=== PATIENT | female | born 1960 | race Caucasian/White ===

== ENCOUNTER 2020-09-29 13:49 | Outpatient (REF) | payer BC, SELFPAY | END 2020-09-29 13:50 | disposition home or self-care (01) | LOC: HO.MAMMO 13:49 | PROVIDERS: Visit Provider Internal Medicine | DX: Z13.89 Encounter for screening for other disorder (principal) ==

== ENCOUNTER 2020-10-04 07:48 | Outpatient (REF) | payer BC, SELFPAY ==
--- NOTE | ~2020-10-04 | MM_ITS ---
EXAMINATION: MM SCREENING DIGITAL BREAST TOMOSYNTHESIS, BILATERAL CLINICAL INFORMATION: Screening. Asymptomatic. The lifetime risk of breast cancer based on the Tyrer-Cuzick Model is 13%. COMPARISON: Mammography: 07/30/2019, 08/02/2018, 04/19/2017 TECHNIQUE: Digital breast tomosynthesis is performed in both the craniocaudal and mediolateral oblique views along with computer-aided detection (CAD). Synthesized 2D images are generated from the tomosynthesis. FINDINGS: The breasts are almost entirely fatty (ACR BI-RADS breast composition Category a). There are no significant masses, abnormal calcifications, or other abnormalities. Background stromal and fibroglandular densities are similar to prior exam. No developing density. The axilla and skin contours are unremarkable. MM/MM tomosynthesis screening BI IMPRESSION: There are no significant changes from prior study. ASSESSMENT: BI-RADS 1: Negative RECOMMENDATION: Routine annual mammography screening. This patient's information was entered into a reminder system with a target due date for their next mammogram.
== END 2020-10-04 07:49 | disposition home or self-care (01) ==
LOC: HO.MAMMO 07:48
PROVIDERS: Visit Provider Internal Medicine
DX: Z12.31 Encounter for screening mammogram for malignant neoplasm of breast (principal)
CPT/HCPCS: 77063; 77067

== ENCOUNTER 2021-10-17 08:33 | Outpatient (REF) | payer BC, SELFPAY ==
--- NOTE | ~2021-10-17 | MM_ITS ---
EXAMINATION: MM SCREENING DIGITAL BREAST TOMOSYNTHESIS, BILATERAL CLINICAL INFORMATION: Screening. Asymptomatic. The lifetime risk of breast cancer based on the Tyrer-Cuzick Model is 8%. COMPARISON: Mammography: 10/04/2020, 07/30/2019, 07/03/2018 TECHNIQUE: Digital breast tomosynthesis is performed in both the craniocaudal and mediolateral oblique views along with computer-aided detection (CAD). Synthesized 2D images are generated from the tomosynthesis. FINDINGS: The breasts are almost entirely fatty (ACR BI-RADS breast composition Category a). There are no significant masses, abnormal calcifications, or other abnormalities. Background stromal markings are stable. There is no developing density or architectural abnormality. The axilla and skin contours are unremarkable. There are no significant changes. MM/MM tomosynthesis screening BI IMPRESSION: No mammographic evidence of malignancy. ASSESSMENT: BI-RADS 1: Negative RECOMMENDATION: Routine annual mammography screening. This patient's information was entered into a reminder system with a target due date for their next mammogram.
== END 2021-10-17 08:34 | disposition home or self-care (01) ==
LOC: HO.MAMMO 08:33
PROVIDERS: PCP Internal Medicine; Visit Provider Internal Medicine
DX: Z12.31 Encounter for screening mammogram for malignant neoplasm of breast (principal)
CPT/HCPCS: 77063; 77067

== ENCOUNTER 2022-02-08 10:33 | Outpatient (REF) | payer BC, SELFPAY ==
[2022-02-08 13:42] LABS: MANUAL DIFF FLAG NO
[2022-02-08 14:03] LABS: Basophils Absolute Auto 0.1 X10*3/uL (0.0-0.2); Basophils Percent Auto 0.9 % (0-2); Eosinophils Absolute Auto 0.2 X10*3/uL (0.0-0.4); Eosinophils Percent Auto 2.9 % (0-4); Hematocrit 41.3 % (37.0-47.0); Hemoglobin 13.6 g/dl (12.0-16.0); Imm Gran Abs Auto 0.02 X10*3/uL (0.00-0.03); Imm Gran Pct Auto 0.4 % (0.0-0.4); Lymphocytes Percent Auto 37.1 % (20-40); Mean Corpuscular HGB Conc 32.9 g/dl (31.0-35.0); Mean Corpuscular Hemoglobin 31.4 pg (27.0-33.0); Mean Corpuscular Volume 95.4 fL (80.0-98.0); Mean Platelet Volume 10.4 fL (9.4-12.3); Monocytes Absolute Auto 0.5 X10*3/uL (0.1-1.2); Monocytes Percent Auto 8.4 % (2-11); Neutrophils Absolute Auto 2.8 x10*3/uL (2.0-8.3); Neutrophils Percent Auto 50.3 % (45-73); Platelet Count 289 X10*3/uL (160-400); Red Blood Count 4.33 X10*6/uL (4.20-5.50); Red Cell Distribution Width 12.4 % (11.0-16.0); White Blood Count 5.5 X10*3/uL (4.8-10.8)
[2022-02-08 14:12] LABS: Alanine Aminotransferase 18 U/L (0-31); Anion Gap 13 (12-20); Aspartate Amino Transferase 22 U/L (5-31); Blood Urea Nitrogen 11 mg/dL (9-16); Calcium 9.2 mg/dL (8.4-10.2); Carbon Dioxide 25 mmol/L (22-29); Chloride 104 mmol/L (96-108); Cholesterol 213 mg/dL; Estimated Glomerular Filt Rate > 60; Glucose Fasting 290 mg/dL (60-99); HDL Cholesterol 31 mg/dL; LDL Cholesterol Calculated 123 mg/dl; Potassium 5.1 mmol/L (3.3-5.1); Sodium 137 mmol/L (135-145); Triglycerides 296 mg/dL
[2022-02-08 14:33] LABS: TSH reflex Free T4 2.11 uIU/mL (0.32-4.0); Vitamin D 25-OH Total 20.1 ng/mL (>30)
[2022-02-09 13:20] LABS: Estimated Average Glucose 295 mg/dL; Hemoglobin A1c % 11.9 %
== END 2022-02-08 10:34 | disposition home or self-care (01) ==
LOC: HO.HMGCLDS 10:33
PROVIDERS: PCP Internal Medicine; Visit Provider Internal Medicine
DX: E78.5 Hyperlipidemia, unspecified (principal); I10 Essential (primary) hypertension; R73.01 Impaired fasting glucose; R42 Dizziness and giddiness
CPT/HCPCS: 36415; 80048; 80061; 82306; 83036; 84443; 84450; 84460; 85025

== ENCOUNTER 2022-06-08 09:24 | Outpatient (REF) | payer BC, SELFPAY ==
[2022-06-08 11:51] LABS: Estimated Average Glucose 137 mg/dL; Hemoglobin A1C 172.8141 umol/L; Hemoglobin A1c % 6.4 %
[2022-06-08 12:08] LABS: Alanine Aminotransferase 11 U/L (0-31); Anion Gap 16 (12-20); Aspartate Amino Transferase 17 U/L (5-31); Blood Urea Nitrogen 19 mg/dL (9-16); Calcium 9.7 mg/dL (8.4-10.2); Carbon Dioxide 27 mmol/L (22-29); Chloride 102 mmol/L (96-108); Cholesterol 174 mg/dL; Estimated Glomerular Filt Rate > 60; Glucose Fasting 140 mg/dL (60-99); HDL Cholesterol 35 mg/dL; LDL Cholesterol Calculated 101 mg/dl; Potassium 4.9 mmol/L (3.3-5.1); Sodium 140 mmol/L (135-145); Triglycerides 194 mg/dL
[2022-06-08 12:16] LABS: Vitamin D 25-OH Total 60.1 ng/mL (>30)
[2022-06-08 12:20] LABS: Creatinine Urine 121.88 mg/dL; Microalbum/Creatinine Ratio Ur 9.8 ug/mg cr
== END 2022-06-08 09:25 | disposition home or self-care (01) ==
LOC: HO.HMGCLDS 09:24
PROVIDERS: PCP Internal Medicine; Visit Provider Internal Medicine
DX: E55.9 Vitamin D deficiency, unspecified (principal); E78.5 Hyperlipidemia, unspecified; I10 Essential (primary) hypertension; E11.65 Type 2 diabetes mellitus with hyperglycemia
CPT/HCPCS: 36415; 80048; 80061; 82043; 82306; 83036; 84450; 84460

== ENCOUNTER 2022-11-08 10:47 | Outpatient (REF) | payer BC, SELFPAY ==
--- NOTE | ~2022-11-08 | MM_ITS ---
EXAMINATION: MM SCREENING DIGITAL BREAST TOMOSYNTHESIS, BILATERAL CLINICAL INFORMATION: Screening. Asymptomatic. The lifetime risk of breast cancer based on the Tyrer-Cuzick Model is 7.7%. COMPARISON: Mammography: October 17, 2021 and studies dating back to January 14, 2015 TECHNIQUE: Digital breast tomosynthesis is performed in both the craniocaudal and mediolateral oblique views along with computer-aided detection (CAD). Synthesized 2D images are generated from the tomosynthesis. FINDINGS: There are scattered areas of fibroglandular density (ACR BI-RADS breast composition Category b). There are no new significant masses, abnormal calcifications, or other abnormalities. Asymmetric density retroareolar region of the right breast is seen and appears to be stable dating back to study of April 19, 2017. MM/MM tomosynthesis screening BI IMPRESSION: No significant changes ASSESSMENT: BI-RADS 2: Benign RECOMMENDATION: Routine annual mammography screening. This patient's information was entered into a reminder system with a target due date for their next mammogram.
== END 2022-11-08 10:48 | disposition home or self-care (01) ==
LOC: HO.MAMMO 10:47
PROVIDERS: Visit Provider Internal Medicine
DX: Z12.31 Encounter for screening mammogram for malignant neoplasm of breast (principal)
CPT/HCPCS: 77063; 77067

== ENCOUNTER 2022-12-28 09:13 | Outpatient (REF) | payer BC, SELFPAY ==
[2022-12-28 11:54] LABS: Estimated Average Glucose 134 mg/dL; Hemoglobin A1c % 6.3 %
[2022-12-28 12:20] LABS: Alanine Aminotransferase 10 U/L (0-31); Anion Gap 10 (12-20); Aspartate Amino Transferase 14 U/L (5-31); Blood Urea Nitrogen 19 mg/dL (9-16); Calcium 9.5 mg/dL (8.4-10.2); Carbon Dioxide 30 mmol/L (22-29); Chloride 106 mmol/L (96-108); Cholesterol 176 mg/dL; Estimated Glomerular Filt Rate > 60; Glucose Fasting 129 mg/dL (60-99); HDL Cholesterol 38 mg/dL; LDL Cholesterol Calculated 106 mg/dl; Potassium 5.2 mmol/L (3.3-5.1); Sodium 141 mmol/L (135-145); Triglycerides 163 mg/dL; Vitamin D 25-OH Total 32.2 ng/mL (>30)
== END 2022-12-28 09:14 | disposition home or self-care (01) ==
LOC: HO.HMGCLDS 09:13
PROVIDERS: PCP Internal Medicine; Visit Provider Internal Medicine
DX: E55.9 Vitamin D deficiency, unspecified (principal); E66.9 Obesity, unspecified; E78.5 Hyperlipidemia, unspecified; I10 Essential (primary) hypertension; E11.9 Type 2 diabetes mellitus without complications
CPT/HCPCS: 36415; 80048; 80061; 82306; 83036; 84450; 84460

== ENCOUNTER 2023-06-14 08:57 | Outpatient (REF) | payer BC, SELFPAY ==
[2023-06-14 11:49] LABS: Estimated Average Glucose 126 mg/dL
[2023-06-14 11:53] LABS: Alanine Aminotransferase 10 U/L (0-31); Anion Gap 14 (12-20); Aspartate Amino Transferase 16 U/L (5-31); Blood Urea Nitrogen 14 mg/dL (9-16); Calcium 9.6 mg/dL (8.4-10.2); Carbon Dioxide 26 mmol/L (22-29); Chloride 105 mmol/L (96-108); Cholesterol 150 mg/dL (<200); Estimated Glomerular Filt Rate > 60; Glucose Fasting 129 mg/dL (60-99); HDL Cholesterol 36 mg/dL (>40); LDL Cholesterol Calculated 86 mg/dL (<100); Potassium 4.7 mmol/L (3.3-5.1); Sodium 140 mmol/L (135-145); Triglycerides 140 mg/dL (<150)
[2023-06-14 12:22] LABS: Vitamin D 25-OH Total 34.3 ng/mL (>30)
[2023-06-14 12:58] LABS: Creatinine Urine 189.57 mg/dL
== END 2023-06-14 08:58 | disposition home or self-care (01) ==
LOC: HO.HMGCLDS 08:57
PROVIDERS: PCP Internal Medicine; Visit Provider Internal Medicine
DX: E11.9 Type 2 diabetes mellitus without complications (principal); E66.9 Obesity, unspecified; I10 Essential (primary) hypertension; E78.5 Hyperlipidemia, unspecified; Z78.0 Asymptomatic menopausal state
CPT/HCPCS: 36415; 80048; 80061; 82043; 82306; 82570; 83036; 84450; 84460

== ENCOUNTER 2023-06-18 07:58 | Outpatient (AMB) | payer BC, SELFPAY ==
[2023-06-18 08:04] VITALS: BP 142/88; PULSE 78; O2SAT 99; BMI 33.4
--- NOTE | 2023-06-18 08:04 | A.OFFPC_ITS ---
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 pt wants flu vaccine today Allergies codeine [From TYLENOL-CODEINE #3] Allergy (Unknown, Verified 06/18/23 08:38) NAUSEA & VOMITING acetaminophen [From TYLENOL-CODEINE #3] Adverse Reaction (Unknown, Verified 06/18/23 08:38) NAUSEA & VOMITING tylenol with codeine Allergy (Unknown, Uncoded 06/18/23 08:38) Stomach Upset Medication List - Last Reconciled 06/18/23 by Radha Solo MD blood sugar diagnostic (FreeStyle Lite Strips) check fasting blood sugar twice a day before meals blood-glucose meter (FreeStyle Lite Meter kit) Check fasting blood sugar twice a day before meals losartan 50 mg PO DAILY metformin 500 mg PO BIDWMEAL 3 months rosuvastatin 5 mg PO 2XW 90 days Tobacco use date assessed: 06/18/23 Dental Screening Dental Screen Date: 06/18/23 Did you have a dental visit in the last 12 months?: No Did you have a dental problem in the last 6 months where you did not have access to dental care?: No Was dental information given to patient?: Patient has dentist HPI Physical exam HPI Details 62-year-old lady with diabetes mellitus, dyslipidemia hypertension, here today for her physical exam. She is up-to-date with her cervical cancer screening, goes to [facility], last Pap was done in 2019, and is up-to-date with her screening mammogram. She had her screening colonoscopy done in [address] Pompa with removal of hyperplastic polyp, it repeated again in 2024. She has had her COVID vaccinations, but has not yet had her booster and will be getting her flu vaccine today. Diabetes mellitus, hypertension and lipids are all well controlled with present treatment. Recent labs done showed hemoglobin A1c at 6%, and fasting lipids are all within normal limits. She however is overdue for diabetes eye screen. [facility] Medical History Diabetes mellitus without complication, without long-term current use of insulin Obesity (BMI 30.0-34.9) Vitamin D deficiency Dyslipidemia Essential hypertension Surgical History H/O shoulder surgery Family History Brother Substance use disorder Social History Housing: Condominium Patient Tobacco Use Status: Never used Tobacco e-Cigarette/Vaping Use: Never Used service: No Current occupational status: employed Cognitive needs: No Hearing needs: No Vision needs: Yes Questionnaire Thrive Questionnaire Date Thrive assessed: 01/03/23 LATONYA-7 AMB Questionnaire LATONYA-7 Date LATONYA - 7 assessed: 01/03/23 Source: Developed by Drs. Rafa Martines, Amanda Perez, Flex Turner and colleagues, with an educational santa from [employer]. Review of Systems Const Denies body aches, Denies fatigue, Denies headache(s), Denies lethargy, Denies malaise and Denies weakness Eyes Details: She has not yet had her eye exam for several years now, remind, wears reading glasses Denies change in vision ENT Denies dizziness, Denies headache(s), Denies nasal congestion, Denies nasal discharge and Denies sore throat Card Denies chest pain, Denies lightheadedness and Denies dyspnea Resp Denies chest congestion, Denies cough, Denies dyspnea and Denies wheezing GI Denies abdominal pain, Denies change in bowel habits and Denies heartburn Denies urinary frequency, Denies difficulty voiding, Reports hot flashes, Denies dysuria, Denies urinary hesitancy, Denies urinary urgency and Denies vaginal discharge Musc Reports arthralgias (Shoulder pain), Denies joint swelling, Denies numbness and Denies tingling Skin/Breast Denies breast swelling, Denies breast skin changes, Denies breast pain and Denies rash Neuro Denies dizziness, Denies headache(s), Denies numbness, Denies Sensory deficit (Neuro), Denies tingling and Denies weakness Psych Reports no additional complaints Endo Denies fatigue, Denies polyphagia, Denies polydipsia and Denies polyuria Sebas/Lymph Denies easy bruising Aller/Immun Denies seasonal rhinorrhea and Denies wheezing Physical exam (Primary Care) Vital Signs: Last Vital Signs Pulse 78 06/18/23 08:04 BP 142/88 H 06/18/23 08:04 Pulse Ox 99 06/18/23 08:04 Oxygen Delivery Method Room Air 06/18/23 08:04 BMI result Body Mass Index 33.4 BMI Assessment/Plan discussion: High BMI High, discussed plan: lifestyle, weight reduction, dietary and physical activity Tobacco/Smoking Status: Tobacco use Status Tobacco use date assessed 06/18/23 06/18/23 08:10 Patient Tobacco Use Status Never used Tobacco 06/18/23 08:05 e-Cigarette/Vaping Use Never Used 06/18/23 08:05 Thrive Assessment: Date of Thrive Assessment Date Thrive assessed 01/03/23 06/18/23 08:05 Const General: comfortable, no acute distress, alert and Physically active Nutritional Appearance: obese Orientation/consciousness: patient oriented x3 Limitations: no limitations HENMT Mouth: Normal oral and palatal mucosa present, oropharynx normal and moist muco us membranes Eyes General: appearance normal, both eyes and all related structures Neck Neck: Yes full ROM, Yes no lymphadenopathy and Yes supple Chest Chest palpation & inspection: normal inspection of the chest Breast/axilla palpation: normal palpation of the breasts and normal palpation of the axillae Resp Effort & Inspection: normal respiratory effort and able to speak in complete sentences Auscultation: clear to auscultation bilaterally Cardio Rate: regular rate Rhythm: regular rhythm Heart sounds: S1 normal heart sound present and S2 normal heart sound present GI Palpation (GI): Soft to palpation, nontender and no masses Auscultation: normal bowel sounds General: Yes no CVA tenderness and Yes deferred (Goes to [facility] for her routine Pap and pelvic exam, currently UTD) Back/Spine/Pelvis Back: no CVA tenderness and No back tenderness Skin General skin exam: no rashes or lesions noted Neuro General: patient oriented x3, gait normal, tone normal, moves all extremities, Normal light touch and pain sensation and no focal motor deficits Cranial nerves: Yes CN's II-XII intact bilaterally Cognition (Neuro): normal cognition Gait exam (Neuro): Normal gait present Motor exam (neuro): 5/5 motor strength present throughout Sensory Exam: No Sensory deficit (Neuro) Extrem General: Yes full ROM, Yes no joint enlargement, Yes no clubbing, cyanosis or edema and Yes no calf tenderness Psych Appearance: grossly normal and well kempt Mental Status: mental status grossly normal Speech and movement: Normal speech and movement present Affect: normal affect Attitude: cooperative Office Procedures Flu Questionnaire Does the patient have a severe egg allergy?: No Does the patient have severe life threatening allergies?: No Does the patient have a fever or illness today?: No Has the patient ever had Guillain-Dayton Syndrome?: No Has the patient ever had any past reaction to a flu shot?: No Immunizations flu vacc [id number] 6mos up(PF) 60 mcg(15 mcgx4)/0.5 mL IM syringe Performing Provider: Radha Solo MD Performing Location: [facility] Administered by: Munira Muniz CMA on 06/18/23 08:55 Dose Route Admin Location Dispensed Lot Number Expiration Date NDC Pattern Chain Builder 0.5 mL IM Left Deltoid 0.5 mL [id number] 02/23/24 [id number] [employer] VIS Given Date VIS Provided VIS Publication Date 06/18/23 Single Vaccine 21 Eligibility Eligibility Date Funding Source Not VFC Eligible 06/18/23 Private Results Reviewed Results Reviewed: OLL: 06/14/23 STATUS: COMP REQ : [id number] RECD: 06/14/[address]: Radha Solo MD COMP: 06/14/23122 ENTERED: 06/14/23-[address]: ORDERED: Met Prof Fast, AST, ALT, Lipid Panel, Vitamin D 25-OH Test Result Flag Reference Site Sodium 140 135-145 mmol/L Potassium 4.7 3.3-5.1 mmol/L CL 105 96-108 mmol/L CO2 26 22-29 mmol/L Gap 14 12-20 BUN 14 9-16 mg/dL Creat 0.76 0.5-1.4 mg/dL EGFR > 60 NOTE: For -Russian individuals, multiply the result by 1.210. Chronic Kidney Disease: Estimated GFR < 60 mL/min/1.73m2 Severe Kidney Disease: Estimated GFR < 15 mL/min/1.73m2 FBS 129 H 60-99 mg/dL A fasting glucose of 126 mg/dl or greater on more than one occasion is considered diagnostic of diabetes. CA 9.6 8.4-10.2 mg/dL AST (GOT) 16 5-31 U/L ALT (GPT) 10 0-31 U/L Triglyceride 140 <150 mg/dL Desirable Triglyceride: less than 150 mg/dL Borderline High Triglyceride 150-199 mg/dL High Triglyceride: 200-499 mg/dL Very High Triglyceride: greater than or equal to 5OO mg/dL Cholesterol 150 <200 mg/dL Desirable Cholesterol: less than 200 mg/dL Borderline High Cholesterol: 200-239 mg/dL High Cholesterol: greater than 239 mg/dL LDL Calculated 86 <100 mg/dL Desirable LDL: less than 100 mg/dL Near Optimal/Above Optimal LDL: 110-129 mg/dL Borderline High LDL: 130-159 mg/dL High LDL: 160-189 mg/dL Very High LDL: greater than or equal to 190 mg/dL HDL 36 L >40 mg/dL Desirable HDL: greater than 40 mg/dL Note: This HDL assay may give artificially low results in patients with liver disease. Vit D 25-OH Tot 34.3 >30 ng/mL Health Based Reference Values* < 20 ng/mL Deficient 20-30 ng/mL Insufficient > 30 ng/mL Sufficient Assessment and Plan Assessment & Plan (1) Annual visit for general adult medical examination with abnormal findings: Code(s): Z00.01 - Encounter for general adult medical examination with abnormal findings Plan: Reviewed recent fasting labs with patient. Recommended dental visit every 6 months and regular eye exams, at least every year for diabetes retinopathy exam. Take adequate calcium in diet and vitamin-D 3 at 2000 IU per cap once a day, in addition to weight-bearing exercises to help maintain good muscle tone and weight control. Instructed to do self-breast exam, and continue to get yearly mammogram, , up-to-date with her cervical cancer screening goes to [facility].. Flu vaccine given today, reminded to get her COVID booster, up-to-date with her Tdap. Will give her Prevnar 20 on next visit. Up-to-date with her screening colonoscopy, due again in 2024 (2) Diabetes mellitus without complication, without long-term current use of insulin: Code(s): E11.9 - Type 2 diabetes mellitus without complications Plan: Recent lab results reviewed with patient, with sugar and hemoglobin A1c stable and at goal at 6%. Continue with metformin, continue to check fasting blood sugar at home, maintain log and bring to next appointment for review. Reinforced diabetic diet and regular exercise with patient. Counseled regarding importance of yearly diabetes retinopathy screening. Patient advised to inspect feet daily, for any signs of injury, callus or infection. Compliance with diet and regular exercise again stressed. Blood pressure goal is less than 130/80, goal LDL is less than 100 and goal hemoglobin A1c is less than 7% follow-up appointment made in-6--months, after fasting labs done. Flu vaccine given, patient reminded again to get her COVID booster, will give her Prevnar 20 on next visit (3) Essential hypertension: Code(s): I10 - Essential (primary) hypertension Plan: Blood pressure goal is less than 130/80. Systolic blood pressure little high today. Will continue on current treatment, losartan 50 mg daily. Reinforced importance of following a low sodium diet, getting regular exercise, and lowering stress levels. (4) Dyslipidemia: Code(s): E78.5 - Hyperlipidemia, unspecified Plan: Reviewed recent fasting lipid profile with patient with levels within normal limits except for low HDL cholesterol . Continue with rosuvastatin 5 mg twice a week , in addition to adherence to low-cholesterol diet and regular exercise, at least 30 minutes 3 to 4 times a week. Advised patient to make healthy food choices, eat more fruits, vegetables, whole grains, wild caught fish and low- fat dairy. Limit amount of meat and fried or fatty food products, as well as processed foods and fast foods. Follow-up scheduled with repeat fasting lipid panel in 6 months. Orders: Orders Influenza [id number] Immunization Today Z23 - Encounter for immunization Hemoglobin A1c 11/25/23 E11.9 - Type 2 diabetes mellitus without complications, E78.5 - Hyperlipidemia, unspecified, I10 - Essential (primary) hypertension Alanine Aminotransferase 11/25/23 E11.9 - Type 2 diabetes mellitus without complications, E78.5 - Hyperlipidemia, unspecified, I10 - Essential (primary) hypertension, Z00.01 - Encounter for general adult medical examination with abnormal findings Lipid Panel 11/25/23 E11.9 - Type 2 diabetes mellitus without complications, E78.5 - Hyperlipidemia, unspecified, I10 - Essential (primary) hypertension Vitamin D 25-OH Total 11/25/23 E11.9 - Type 2 diabetes mellitus without complications, E78.5 - Hyperlipidemia, unspecified, I10 - Essential (primary) hypertension Microalbumin, Random (w Creat) 11/25/23 E11.9 - Type 2 diabetes mellitus without complications, E78.5 - Hyperlipidemia, unspecified, I10 - Essential (primary) hypertension Aspartate Amino Transferase 11/25/23 E11.9 - Type 2 diabetes mellitus without complications, E78.5 - Hyperlipidemia, unspecified, I10 - Essential (primary) hypertension Basic Metabolic Panel Fasting 11/25/23 E11.9 - Type 2 diabetes mellitus without complications, E78.5 - Hyperlipidemia, unspecified, I10 - Essential (primary) hypertension Medications: Changed From metformin 500 mg PO BIDWMEAL 3 months 180 tabs 3RF E11.65 - Type 2 diabetes mellitus with hyperglycemia To metformin 500 mg PO BIDWMEAL 90 days 180 tabs 4RF E11.65 - Type 2 diabetes m ellitus with hyperglycemia Refilled rosuvastatin 5 mg PO 2XW 90 days 26 tabs 4RF E11.65 - Type 2 diabetes mellitus with hyperglycemia, E78.5 - Hyperlipidemia, unspecified, I10 - Essential (primary) hypertension losartan 50 mg PO DAILY 90 tabs 4RF I10 - Essential (primary) hypertension Coding Level of Care Code Est Pt Prev Care 40-64y(35724) Diagnoses Annual visit for general adult medical examination with abnormal findings Z00.01 Diabetes mellitus without complication, without long-term current use of insulin E11.9 Essential hypertension I10 Dyslipidemia E78.5
== END 2023-06-18 09:01 | disposition home or self-care (01) ==
PROVIDERS: Visit Provider Internal Medicine
DX: Z00.00 Encounter for general adult medical examination without abnormal findings (principal); E11.9 Type 2 diabetes mellitus without complications; I10 Essential (primary) hypertension; E78.5 Hyperlipidemia, unspecified; Z23 Encounter for immunization
CPT/HCPCS: 90471; 90686; 99396

== ENCOUNTER 2023-12-26 07:53 | Outpatient (REF) | payer BC, SELFPAY ==
--- NOTE | ~2023-12-26 | MM_ITS ---
EXAMINATION: MM SCREENING DIGITAL BREAST TOMOSYNTHESIS, BILATERAL CLINICAL INFORMATION: Screening. Asymptomatic. COMPARISON: Mammography: 11/08/2022, 10/17/2021, 10/04/2020, and dating back to 2014. TECHNIQUE: Digital breast tomosynthesis is performed in both the craniocaudal and mediolateral oblique views along with computer-aided detection (CAD). Synthesized 2D images are generated from the tomosynthesis. FINDINGS: There are scattered areas of fibroglandular density (ACR BI-RADS breast composition Category b). There are no suspicious masses, suspicious grouped calcifications, or areas of architectural distortion in either breast. The parenchymal pattern is stable from prior exams. No suspicious skin or axillary abnormality. MM/MM tomosynthesis screening BI IMPRESSION: No mammographic evidence of malignancy. ASSESSMENT: BI-RADS BI-RADS 1 - Negative RECOMMENDATION: Routine annual mammography screening. 1 year F/U This examination should not preclude the clinical evaluation of a suspicious palpable abnormality. This patient's information was entered into a reminder system with a target due date for their next mammogram.
== END 2023-12-26 07:54 | disposition home or self-care (01) ==
LOC: HO.MAMMO 07:53
PROVIDERS: PCP Internal Medicine; Visit Provider Internal Medicine
DX: Z12.31 Encounter for screening mammogram for malignant neoplasm of breast (principal)
CPT/HCPCS: 77063; 77067

== ENCOUNTER → 2023-12-26 08:15 | Outpatient (BNV) | payer BC, SELFPAY | PROVIDERS: PCP Internal Medicine; Visit Provider Radiology Diagnostic Radiology | DX: Z12.31 Encounter for screening mammogram for malignant neoplasm of breast (principal) | CPT/HCPCS: 77063; 77067 ==

== ENCOUNTER 2024-02-25 12:42 | Outpatient (REF) | payer BC, SELFPAY ==
[2024-02-25 16:31] LABS: Estimated Average Glucose 146 mg/dL; Hemoglobin A1c % 6.7 % (<6.0)
[2024-02-25 16:39] LABS: Alanine Aminotransferase 13 U/L (0-31); Anion Gap 15 (12-20); Aspartate Amino Transferase 20 U/L (5-31); Blood Urea Nitrogen 16 mg/dL (9-16); Calcium 9.7 mg/dL (8.4-10.2); Carbon Dioxide 27 mmol/L (22-29); Chloride 106 mmol/L (96-108); Cholesterol 170 mg/dL (<200); Estimated Glomerular Filt Rate > 60; Glucose Fasting 110 mg/dL (60-99); HDL Cholesterol 37 mg/dL (>40); LDL Cholesterol Calculated 95 mg/dL (<100); Potassium 4.7 mmol/L (3.3-5.1); Sodium 143 mmol/L (135-145); Triglycerides 191 mg/dL (<150)
[2024-02-25 17:16] LABS: Creatinine Urine 173.44 mg/dL; Microalbum/Creatinine Ratio Ur 7.4 ug/mg cr (<30)
== END 2024-02-25 12:43 | disposition home or self-care (01) ==
LOC: HO.HMGCLDS 12:42
PROVIDERS: PCP Internal Medicine; Visit Provider Internal Medicine
DX: Z00.01 Encounter for general adult medical examination with abnormal findings (principal); E11.9 Type 2 diabetes mellitus without complications; I10 Essential (primary) hypertension; E78.5 Hyperlipidemia, unspecified
CPT/HCPCS: 36415; 80048; 80061; 82043; 82306; 82570; 83036; 84450; 84460

== ENCOUNTER 2024-02-28 08:50 | Outpatient (AMB) | payer BC, SELFPAY ==
--- NOTE | 2024-02-28 11:10 | MHC.PC.OV ---
Intake Visit Reasons: I phone f/u DM [phone] Allergies codeine [From TYLENOL-CODEINE #3] Allergy (Unknown, Verified 02/28/24 11:24) NAUSEA & VOMITING Medication List - Last Reconciled 02/28/24 by Radha Solo MD blood sugar diagnostic (FreeStyle Lite Strips) check fasting blood sugar twice a day before meals blood-glucose meter (FreeStyle Lite Meter kit) Check fasting blood sugar twice a day before meals losartan 50 mg PO DAILY metformin 500 mg PO BIDWMEAL 90 days rosuvastatin 5 mg PO 2XW 90 days Tobacco use date assessed: 02/28/24 Dental Screening Dental Screen Date: 06/18/23 HPI I phone f/u [phone] HPI Details Tele health visit made with 63-year-old lady with diabetes mellitus, hyperlipidemia and hypertension, here today for follow-up. She has been compliant with taking her medications, but admits to not being fully compliant with her diet, and has not been getting any regular exercise lately. She has been feeling well otherwise, with no new complaints at present time. [facility]LY [facility] Medical History Diabetes mellitus without complication, without long-term current use of insulin Obesity (BMI 30.0-34.9) Vitamin D deficiency Dyslipidemia Essential hypertension Surgical History H/O shoulder surgery Family History Brother Substance use disorder Social History Housing: Condominium Patient Tobacco Use Status: Never used Tobacco e-Cigarette/Vaping Use: Never Used service: No Current occupational status: employed Cognitive needs: No Hearing needs: No Vision needs: Yes Questionnaire PHQ-9 Over the last 2 weeks, how often have you been bothered by any of the following problems? 1. Little interest or pleasure in doing things: not at all 2. Feeling down, depressed, or hopeless: not at all 3. Trouble falling or staying asleep, or sleeping too much: not at all 4. Feeling tired or having little energy: not at all 5. Poor appetite or overeating: not at all 6. Feeling bad about yourself - or that you are a failure or have let yourself or your family down: not at all 7. Trouble concentrating on things, such as reading the newspaper or watching television: not at all 8. Moving or speaking so slowly that other people could have noticed. Or the opposite - being so fidgety or restless that you have been moving around a lot more than usual: not at all 9. Thoughts that you would be better off or of hurting yourself in some way: not at all Total score: 0 Depression Screening Interpretation: Negative Depression Screening Done: Yes Source: Developed by Drs. Rafa Martines, Amanda Perez, Flex Turner and colleagues, with an educational santa from [employer] Thrive Questionnaire Date Thrive assessed: 02/28/24 I am a: Patient What is your living situation today?: I have a steady place to live Within the past 12 months, did the food you bought not last and you didn't have the money to get more?: Never true Within the past 12 months, did you worry whether your food would run out before you got money to buy more?: Never true Do you have trouble paying for medicines?: No Do you have trouble getting transportation to medical appointments?: No Do you have trouble paying your heating and electricity bill?: No Do you have trouble taking care of your child, family member or friend?: No Do you have trouble with day-to-day activities such as bathing, preparing meals, shopping, managing finances, etc.?: No Are you currently unemployed and looking for a job?: Yes Are you interested in more education?: No THRIVE Score: 0 AUDIT C Alcohol Use Questionnaire (AUDIT-C) 1. How often do you have a drink containing alcohol?: Never Total Score: 0 LATONYA-7 AMB Questionnaire LATONYA-7 Date LATONYA - 7 assessed: 02/28/24 Feeling nervous, anxious, or on edge: 0 = Not at all Not being able to stop or control worryin = Not at all Worrying too much about different things: 0 = Not at all Trouble relaxin = Not at all Being so restless that it is hard to sit still: 0 = Not at all Becoming easily annoyed or irritable: 0 = Not at all Feeling afraid as if something awful might happen: 0 = Not at all Total LATONYA-7 score (0-4 normal; 5-9 mild; 10-14 moderate; 15-21 severe): 0 Source: Developed by Drs. Rafa Martines, Amanda Perez, Flex Turner and colleagues, with an educational santa from [employer]. Review of Systems Const Denies body aches, Denies fatigue, Denies headache(s), Denies lethargy, Denies malaise and Denies weakness Eyes Details: She has not yet had her eye exam for several years now, remind, wears reading glasses Denies change in vision ENT Denies dizziness, Denies headache(s), Denies nasal congestion, Denies nasal discharge and Denies sore throat Card Denies chest pain, Denies lightheadedness and Denies dyspnea Resp Denies chest congestion, Denies cough, Denies dyspnea and Denies wheezing GI Denies abdominal pain, Denies change in bowel habits and Denies heartburn Denies urinary frequency, Denies difficulty voiding, Reports hot flashes, Denies dysuria, Denies urinary hesitancy, Denies urinary urgency and Denies vaginal discharge Musc Denies arthralgias, Denies numbness and Denies tingling Skin/Breast Denies breast swelling, Denies breast skin changes, Denies breast pain and Denies rash Neuro Denies dizziness, Denies headache(s), Denies numbness, Denies Sensory deficit (Neuro), Denies tingling and Denies weakness Psych Reports no additional complaints Endo Denies fatigue, Denies polyphagia, Denies polydipsia and Denies polyuria Sebas/Lymph Denies easy bruising Aller/Immun Denies seasonal rhinorrhea and Denies wheezing Physical exam (Primary Care) Tobacco/Smoking Status: Tobacco use Status Tobacco use date assessed 02/28/24 02/28/24 11:11 Patient Tobacco Use Status Never used Tobacco 02/28/24 11:11 e-Cigarette/Vaping Use Never Used 02/28/24 11:11 Depression Screening Interpretation: Negative Thrive Assessment: Date of Thrive Assessment Date Thrive assessed 01/03/23 02/28/24 11:11 Neuro Sensory Exam: No Sensory deficit (Neuro) Telehealth Telehealth [facility] Location of provider rendering services: practice address Location of patient: address on file Patient Identification confirmed using: Name, : Yes Telehealth method: video Patient verbally consented to treatment: Yes Patient verbally consented to billing insurance company: Yes Patient informed of any privacy concerns related to visit: Yes Minutes spent on Phone/Video with Pt.: 15 Results Reviewed Results Reviewed: Laboratory Tests 06/14/23 02/25/24 02/25/24 09:09 12:47 12:55 Estimat Average Glucose 126 146 Hemoglobin A1c % 6.0 6.7 H Urine Creatinine 173.44 Urine Microalbumin 13.0 Microalb/Creat Ratio 7.4 immanuel: Greer Cullen Age/Sex: 63/F : 1960 Unit#: [id number] Attend Dr: Radha Solo MD Re02/25/24 Status: DEP REF Location: [facility] Disch: SPEC : [id number] ROYCE: 02/25/24 STATUS: COMP REQ : [id number] RECD: 02/25/[address]: Radha Solo MD COMP: 02/25/24 ENTERED: 02/25/[address]: ORDERED: Met Prof Fast, AST, ALT, Lipid Panel, Vitamin D 25-OH Test Result Flag Reference Sodium 143 135-145 mmol/L Potassium 4.7 3.3-5.1 mmol/L CL 106 96-108 mmol/L CO2 27 22-29 mmol/L Gap 15 12-20 BUN 16 9-16 mg/dL Creat 0.86 0.5-1.4 mg/dL EGFR > 60 NOTE: For -[place] individuals, multiply the result by 1.210. Chronic Kidney Disease: Estimated GFR < 60 mL/min/1.73m2 Severe Kidney Disease: Estimated GFR < 15 mL/min/1.73m2 FBS 110 H 60-99 mg/dL A fasting glucose from 100-125 mg/dl is considered impaired (pre-diabetes). CA 9.7 8.4-10.2 mg/dL AST (GOT) 20 5-31 U/L ALT (GPT) 13 0-31 U/L Triglyceride 191 H <150 mg/dL Desirable Triglyceride: less than 150 mg/dL Borderline High Triglyceride 150-199 mg/dL High Triglyceride: 200-499 mg/dL Very High Triglyceride: greater than or equal to 5OO mg/dL Cholesterol 170 <200 mg/dL Desirable Cholesterol: less than 200 mg/dL Borderline High Cholesterol: 200-239 mg/dL High Cholesterol: greater than 239 mg/dL LDL Calculated 95 <100 mg/dL Desirable LDL: less than 100 mg/dL Near Optimal/Above Optimal LDL: 110-129 mg/dL Borderline High LDL: 130-159 mg/dL High LDL: 160-189 mg/dL Very High LDL: greater than or equal to 190 mg/dL HDL 37 L >40 mg/dL Desirable HDL: greater than 40 mg/dL Note: This HDL assay may give artificially low results in patients with liver disease. Vit D 25-OH Tot 63.0 >30 ng/mL Health Based Reference Values* < 20 ng/mL Deficient 20-30 ng/mL Insufficient > 30 ng/mL Sufficient Assessment and Plan Assessment & Plan (1) Dyslipidemia: Code(s): E78.5 - Hyperlipidemia, unspecified Plan: Reviewed recent fasting lab results with patient with lipids within normal limits, will continue on rosuvastatin 5 mg taken 1 tablet twice a week. Reinforced importance of following a low cholesterol diet and getting regular exercise at least 15 minutes of cardio exercise 3 to 4 times a week. Will repeat another fasting lipid panel in 07/2024 prior to her next appointment for physical exam (2) Diabetes mellitus without complication, without long-term current use of insulin: Code(s): E11.9 - Type 2 diabetes mellitus without complications Plan: Recent lab results reviewed with patient, with worsening hemoglobin A1c noted at 6.7% as compared to last check. Will continue on metformin 500 mg 1 tablet twice a day with meals, continue to check fasting blood sugar at home, maintain log and bring to next appointment for review. Reinforced diabetic diet and regular exercise with patient. Counseled regarding importance of yearly diabetes retinopathy screening. Patient advised to inspect feet daily, for any signs of injury, callus or infection. Compliance with diet and regular exercise again stressed. Blood pressure goal is less than 130/80, goal LDL is less than 100 and goal hemoglobin A1c is less than 7% follow-up appointment made in-07/2024, after fasting labs done. Orders: Orders Alanine Aminotransferase 07/26/24 E11.9 - Type 2 diabetes mellitus without complications, E78.5 - Hyperlipidemia, unspecified, I10 - Essential (primary) hypertension Aspartate Amino Transferase 07/26/24 E11.9 - Type 2 diabetes mellitus without complications, E78.5 - Hyperlipidemia, unspecified, I10 - Essential (primary) hypertension Basic Metabolic Panel Fasting 07/26/24 E11.9 - Type 2 diabetes mellitus without complications, E78.5 - Hyperlipidemia, unspecified, I10 - Essential (primary) hypertension Vitamin D 25-OH Total 07/26/24 E11.9 - Type 2 diabetes mellitus without complications, E78.5 - Hyperlipidemia, unspecified, I10 - Essential (primary) hypertension Hemoglobin A1c 07/26/24 E11.9 - Type 2 diabetes mellitus without complications, E78.5 - Hyperlipidemia, unspecified, I10 - Essential (primary) hypertension Lipid Panel 07/26/24 E11.9 - Type 2 diabetes mellitus without complications, E78.5 - Hyperlipidemia, unspecified, I10 - Essential (primary) hypertension Medications: Refilled rosuvastatin 5 mg PO 2XW 90 days 26 tabs 4RF E11.65 - Type 2 diabetes mellitus with hyperglycemia, E78.5 - Hyperlipidemia, unspecified, I10 - Essential (primary) hypertension Coding Level of Care Code Tele Est Pt Level 4 (98450) Diagnoses Dyslipidemia E78.5 Diabetes mellitus without complication, without long-term current use of insulin E11.9
== END 2024-02-28 12:00 | disposition home or self-care (01) ==
LOC: HO.HMGC 08:50
PROVIDERS: PCP Internal Medicine; Visit Provider Internal Medicine
DX: E78.5 Hyperlipidemia, unspecified (principal); E11.69 Type 2 diabetes mellitus with other specified complication
CPT/HCPCS: 99214

== ENCOUNTER 2024-08-18 12:27 | Outpatient (AMB) | payer BC, SELFPAY ==
--- NOTE | 2024-08-18 12:56 | MHC.PC.OV ---
Vital Signs 08/18/24 12:59 Height 5 ft 8 in Weight 237 lb BMI 36.0 BP 142/66 H Blood Pressure Location Rt brachial Position Sitting Pulse 92 Pulse Source Pulse Oximeter Pulse Oximetry (%) 98 Oxygen Delivery Method Room Air Comment has not taken BP medicine prior to appt Intake Visit Reasons: Annual PE/moved per Dr. Solo Intake Note: Pt is here today for her PE: Last mammogram 12/26/23, papsmear 09/22/19, colonoscopy 06/29/23 Allergies codeine [From TYLENOL-CODEINE #3] Allergy (Unknown, Verified 08/18/24 13:40) NAUSEA & VOMITING Medication List - Last Reconciled 08/18/24 by Radha Solo MD blood sugar diagnostic (FreeStyle Lite Strips) check fasting blood sugar twice a day before meals blood-glucose meter (FreeStyle Lite Meter kit) Check fasting blood sugar twice a day before meals losartan 50 mg PO DAILY metformin 500 mg PO BIDWMEAL 90 days rosuvastatin 5 mg PO 2XW 90 days Tobacco use date assessed: 08/18/24 Dental Screening Dental Screen Date: 08/18/24 Did you have a dental visit in the last 12 months?: Yes Did you have a dental problem in the last 6 months where you did not have access to dental care?: No Was dental information given to patient?: Patient has dentist HPI Annual PE/moved per Dr. Solo HPI Details - The patient is a 63-year-old female presenting for a physical examination and review of chronic conditions ehich includes essential hypertension, diabcetes mellitus, and dyslipidemia. - Hypertension: elevated blood pressure noted on today's visit , states that she just came back from a 20 day cruise, and has not taken her blood pressure medicines this morning. - Diabetes Mellitus: Discussed need for regular monitoring and potential adjustments to medications. Most recent A1c was 6.2 as of February, indicating controlled status but slight increase from previous levels. Has not yet had her repeat labs done - Dyslipidemia: Was informed triglycerides increased from 140 to 191 in February, despite overall cholesterol profile being good. Discussion around lifestyle adjustments needed to manage lipid levels. - up-to-date with her screening colonoscopy, last done 09/14/[address] Pompa with removal of hyperplastic polyp, repeat due again in 2024 - Scheduled bone density scan and mammogram for December 2023. -last Pap smear was done in 2019 at [facility] with negative findings. - Confirmed an up-to-date tetanus vaccine from 2016. - Flu vaccine received July 02, 2023. - Discussed need for a shingles vaccine. - Advised on the need for regular eye examinations, especially for diabetes management. [facility] Medical History Diabetes mellitus without complication, without long-term current use of insulin Obesity (BMI 30.0-34.9) Vitamin D deficiency Dyslipidemia Essential hypertension Surgical History H/O shoulder surgery Family History Brother Substance use disorder [facility] Tobacco Use Status: Never used Tobacco e-Cigarette/Vaping Use: Never Used service: No Current occupational status: employed Cognitive needs: No Hearing needs: No Vision needs: Yes Questionnaire PHQ-9 Over the last 2 weeks, how often have you been bothered by any of the following problems? 1. Little interest or pleasure in doing things: not at all 2. Feeling down, depressed, or hopeless: not at all 3. Trouble falling or staying asleep, or sleeping too much: not at all 4. Feeling tired or having little energy: not at all 5. Poor appetite or overeating: not at all 6. Feeling bad about yourself - or that you are a failure or have let yourself or your family down: not at all 7. Trouble concentrating on things, such as reading the newspaper or watching television: not at all 8. Moving or speaking so slowly that other people could have noticed. Or the opposite - being so fidgety or restless that you have been moving around a lot more than usual: not at all 9. Thoughts that you would be better off or of hurting yourself in some way: not at all Total score: 0 Depression Screening Interpretation: Negative Depression Screening Done: Yes 49290 - PHQ-9 Billing: Yes Source: Developed by Drs. Rafa LAmanda Molina Kurt Kroenke and colleagues, with an educational santa from [employer]. Thrive Questionnaire Date Thrive assessed: 08/11/24 I am a: Patient What is your living situation today?: I have a steady place to live Within the past 12 months, did the food you bought not last and you didn't have the money to get more?: Never true Within the past 12 months, did you worry whether your food would run out before you got money to buy more?: Never true Do you have trouble paying for medicines?: No Do you have trouble getting transportation to medical appointments?: No Do you have trouble paying your heating and electricity bill?: No Do you have trouble taking care of your child, family member or friend?: No Do you have trouble with day-to-day activities such as bathing, preparing meals, shopping, managing finances, etc.?: No Are you currently unemployed and looking for a job?: No Are you interested in more education?: No Please select the resources that you would like help with: None Currently or been in a relationship where the following occur: No concerns reported THRIVE Score: 0 AUDIT C Alcohol Use Questionnaire (AUDIT-C) 1. How often do you have a drink containing alcohol?: Never 3. How often do you have six or more drinks on one occasion?: Never Total Score: 0 LATONYA-7 AMB Questionnaire LATONYA-7 Date LATONYA - 7 assessed: 02/28/24 Feeling nervous, anxious, or on edge: 0 = Not at all Not being able to stop or control worryin = Not at all Worrying too much about different things: 0 = Not at all Trouble relaxin = Not at all Being so restless that it is hard to sit still: 0 = Not at all Becoming easily annoyed or irritable: 0 = Not at all Feeling afraid as if something awful might happen: 0 = Not at all Total LATONYA-7 score (0-4 normal; 5-9 mild; 10-14 moderate; 15-21 severe): 0 Source: Developed by Drs. Rafa Martines, Flex Nash and colleagues, with an educational santa from [employer]. LATONYA-7 Assessment Billing LATONYA-7 Assessment Tool: LATONYA-7 Assessment 47006 Review of Systems Const Denies body aches, Denies fatigue, Denies headache(s), Denies lethargy, Denies malaise and Denies weakness Eyes Details: She has not yet had her eye exam for several years now, wears reading glasses Denies change in vision ENT Denies dizziness, Denies headache(s), Denies nasal congestion, Denies nasal discharge and Denies sore throat Card Denies chest pain, Denies lightheadedness and Denies dyspnea Resp Denies chest congestion, Denies cough, Denies dyspnea and Denies wheezing GI Denies abdominal pain, Denies change in bowel habits and Denies heartburn Denies urinary frequency, Denies difficulty voiding, Reports hot flashes, Denies dysuria, Denies urinary hesitancy, Denies urinary urgency and Denies vaginal discharge Musc Denies arthralgias, Denies numbness and Denies tingling Skin/Breast Denies breast swelling, Denies breast skin changes, Denies breast pain and Denies rash Neuro Denies dizziness, Denies headache(s), Denies numbness, Denies Sensory deficit (Neuro), Denies tingling and Denies weakness Psych Reports no additional complaints Endo Denies fatigue, Denies polyphagia, Denies polydipsia and Denies polyuria Sebas/Lymph Denies easy bruising Aller/Immun Denies seasonal rhinorrhea and Denies wheezing Physical exam (Primary Care) Vital Signs: Last Vital Signs Pulse 92 08/18/24 12:59 BP 142/66 H 08/18/24 12:59 Pulse Ox 98 08/18/24 12:59 Oxygen Delivery Method Room Air 08/18/24 12:59 BMI result Body Mass Index 36.0 BMI Assessment/Plan discussion: High BMI High, discussed plan: lifestyle, weight reduction, dietary and physical activity Tobacco/Smoking Status: Tobacco use Status Tobacco use date assessed 08/18/24 08/18/24 13:08 Patient Tobacco Use Status Never used Tobacco 08/18/24 13:08 e-Cigarette/Vaping Use Never Used 08/18/24 13:08 PHQ-9: PHQ-9 Score PHQ-9: Total score 0 08/18/24 13:43 Depression Screening Interpretation: Negative Thrive Assessment: Date of Thrive Assessment Date Thrive assessed 08/11/24 08/18/24 13:08 Currently or been in a relationship where the following occur: No concerns reported Const General: comfortable, no acute distress, alert and Physically active Nutritional Appearance: obese Orientation/consciousness: patient oriented x3 Limitations: no limitations HENMT Mouth: Normal oral and palatal mucosa present, oropharynx normal and moist mucous membranes Eyes General: appearance normal, both eyes and all related structures Neck Neck: Yes full ROM, Yes no lymphadenopathy and Yes supple Chest Chest palpation & inspection: normal inspection of the chest Breast/axilla palpation: normal palpation of the breasts and normal palpation of the axillae Resp Effort & Inspection: normal respiratory effort and able to speak in complete sentences Auscultation: clear to auscultation bilaterally Cardio Rate: regular rate Rhythm: regular rhythm Heart sounds: S1 normal heart sound present and S2 normal heart sound present GI Palpation (GI): Soft to palpation, nontender and no masses Auscultation: normal bowel sounds General: Yes no CVA tenderness and Yes deferred (Goes to [facility] for her routine Pap and pelvic exam, currently UTD) Back/Spine/Pelvis Back: no CVA tenderness and No back tenderness Skin General skin exam: no rashes or lesions noted Neuro General: patient oriented x3, gait normal, tone normal, moves all extremities, Normal light touch and pain sensation and no focal motor deficits Cranial nerves: Yes CN's II-XII intact bilaterally Cognition (Neuro): normal cognition Gait exam (Neuro): Normal gait present Motor exam (neuro): 5/5 motor strength present throughout Sensory Exam: No Sensory deficit (Neuro) Extrem General: Yes full ROM, Yes no joint enlargement, Yes no clubbing, cyanosis or edema and Yes no calf tenderness Psych Appearance: grossly normal and well kempt Mental Status: mental status grossly normal Speech and movement: Normal speech and movement present Affect: normal affect Attitude: cooperative Coding Level of Care Code Est Pt Prev Care 40-64y(42989) Diagnoses Annual visit for general adult medical examination with abnormal findings Z00.01 Encounter for screening for malignant neoplasm of colon Z12.11 Diabetes mellitus without complication, without long-term current use of insulin E11.9 Obesity (BMI 30.0-34.9) E66.9 Essential hypertension I10 Dyslipidemia E78.5 Advanced directives, counseling/discussion Z71.89 Additional Codes LATONYA-7 Assessment Billing - LATONYA-7 Assessment Tool: LATONYA-7 Assessment 11560 ([id number]) PHQ-9 - 66639 - PHQ-9 Billing: Yes ([id number]) Assessment & Plan Assessment & Plan (1) Annual visit for general adult medical examination with abnormal findings: Code(s): Z00.01 - Encounter for general adult medical examination with abnormal findings Plan: Reminded to get her fasting labs done. Recommended dental visit every 6 months and regular eye exams, at least every 2 years. Take adequate calcium in diet and vitamin-D 3 at 2000 IU per cap once a day, in addition to weight-bearing exercises to help maintain good muscle tone and weight control. Instructed to do self-breast exam, and continue with yearly mammogram, repeat screening ordered for next year, to be done together with a bone density scan. She was reminded to schedule an appointment with her OB for her routine Pap and pelvic exam, which is now due . Up-to-date with her vaccines but does not want to get a COVID booster, Flu shot, reminded to get her shingles vaccine . Referred to GI Clinic for a repeat screening colonoscopy, now due in 2024 (2) Encounter for screening for malignant neoplasm of colon: Code(s): Z12.11 - Encounter for screening for malignant neoplasm of colon Plan: Last colonoscopy done by Dr. Pompa in 2014 with removal of hyperplastic polyp, for a repeat colonoscopy in 2024, [place] [facility] [place] (3) Diabetes mellitus without complication, without long-term current use of insulin: Code(s): E11.9 - Type 2 diabetes mellitus without complications Category: Medical Plan: Reminded to get her fasting labs done. Continue with metformin 500 mg to take 1 tablet twice a day with meals. And reinforced importance of following diabetic diet and getting regular cardio exercise at least 30-40 daily. Reminded to get her fasting labs done (4) Obesity (BMI 30.0-34.9): Code(s): E66.9 - Obesity, unspecified Category: Medical Plan: Recommended focusing on improving your health instead of dieting. : Eat Mediterranean diet, limit foods high in fat, sugar, and calories, eat slowly, pay attention to portion sizes, plan your meals ahead of time, start regular physical activity 150 minutes of moderate intensity exercise or 90 minutes/week of vigorous exercise and increase water intake. (5) Essential hypertension: Code(s): I10 - Essential (primary) hypertension Category: Medical Plan: Blood pressure not at goal of less than 130/80. Currently on losartan 50 mg once a day, stressed importance of following a low-salt diet and getting regular exercise. Will have her come in to have a repeat blood pressure check later this week (6) Dyslipidemia: Code(s): E78.5 - Hyperlipidemia, unspecified Category: Medical Plan: Fasting lipid panel has been ordered. Currently taking rosuvastatin 5 mg 1 tablet twice a day week. (7) Advanced directives, counseling/discussion: Code(s): Z71.89 - Other specified counseling Plan: Initiated the conversation about Advanced Directives. Advanced Directives help patients prepare for current and future decisions about their medical treatment and place of care. Discussed with patient that it is a process where a patients current condition and prognosis are reviewed, their wishes for information regarding their illness are elicited, and likely medical dilemmas are presented and options discussed. Healthcare proxy form completed today. The form can be amended as needed, reviewed yearly and make changes as needed Orders: Orders XR DEXA axial skeleton 08/18/24 Z12.31 - Encounter for screening mammogram for malignant neoplasm of breast MM tomosynthesis screening BI 08/18/24 Z12.31 - Encounter for screening mammogram for malignant neoplasm of breast Referrals Gastroenterology Referral Z12.11 - Encounter for screening for malignant neoplasm of colon
[2024-08-18 12:59] VITALS: BP 142/66; PULSE 92; O2SAT 98; BMI 36.0
== END 2024-08-18 13:47 | disposition home or self-care (01) ==
PROVIDERS: PCP Internal Medicine; Visit Provider Internal Medicine
DX: Z00.01 Encounter for general adult medical examination with abnormal findings (principal); E11.69 Type 2 diabetes mellitus with other specified complication; E66.9 Obesity, unspecified; Z68.36 Body mass index [BMI] 36.0-36.9, adult; Z12.11 Encounter for screening for malignant neoplasm of colon; I10 Essential (primary) hypertension; E78.5 Hyperlipidemia, unspecified

== ENCOUNTER → 2024-08-18 12:27 | Outpatient (BNVA) | payer BC, SELFPAY | PROVIDERS: PCP Internal Medicine; Visit Provider Internal Medicine | DX: Z00.01 Encounter for general adult medical examination with abnormal findings (principal); E11.9 Type 2 diabetes mellitus without complications; E66.9 Obesity, unspecified; Z68.36 Body mass index [BMI] 36.0-36.9, adult; I10 Essential (primary) hypertension; E78.5 Hyperlipidemia, unspecified; Z79.84 Long term (current) use of oral hypoglycemic drugs; Z79.899 Other long term (current) drug therapy; Z71.89 Other specified counseling | CPT/HCPCS: 96127 ==

== ENCOUNTER 2024-08-21 09:16 | Outpatient (REF) | payer BC, SELFPAY ==
[2024-08-21 13:16] LABS: Estimated Average Glucose 148 mg/dL; Hemoglobin A1C 168.9727 umol/L; Hemoglobin A1c % 6.8 % (<6.0); Total Hemoglobin (HGBA1C) 3307.5365 umol/L
[2024-08-21 13:55] LABS: Alanine Aminotransferase 16 U/L (0-31); Anion Gap 8 (12-20); Aspartate Amino Transferase 27 U/L (5-31); Blood Urea Nitrogen 16 mg/dL (9-16); Calcium 9.3 mg/dL (8.4-10.2); Carbon Dioxide 29 mmol/L (22-29); Chloride 106 mmol/L (96-108); Cholesterol 152 mg/dL (<200); Estimated Glomerular Filt Rate > 60; Glucose Fasting 147 mg/dL (60-99); HDL Cholesterol 32 mg/dL (>40); LDL Cholesterol Calculated 84 mg/dL (<100); Potassium 4.3 mmol/L (3.3-5.1); Sodium 139 mmol/L (135-145); Triglycerides 182 mg/dL (<150); Vitamin D 25-OH Total 46.1 ng/mL (>30)
== END 2024-08-21 09:17 | disposition home or self-care (01) ==
LOC: HO.HMGCLDS 09:16
PROVIDERS: PCP Internal Medicine; Visit Provider Internal Medicine
DX: E11.9 Type 2 diabetes mellitus without complications (principal); E78.5 Hyperlipidemia, unspecified; I10 Essential (primary) hypertension
CPT/HCPCS: 36415; 80048; 80061; 82306; 83036; 84450; 84460

== ENCOUNTER 2025-04-29 08:21 | Outpatient (REF) | payer BC, SELFPAY ==
--- NOTE | ~2025-04-29 | MM_ITS ---
EXAMINATION: BONE DENSITOMETRY CLINICAL INDICATION: Postmenopausal. COMPARISON: This is the patient's baseline examination. TECHNIQUE: Using a [employer]terra (Inside[employer]) dual-energy x-ray absorptiometry was performed of the lumbar spine and left femur. The images are of good technical quality. Summary results are attached. FINDINGS: AP SPINE L2-L3: There is mild osteophytosis in the lower lumbar and dorsal lumbar spine BMD 1.192 g/cm2, Z-score 0.1, T-score -0.1. LEFT FEMUR, NECK: BMD 0.878 g/cm2, Z-score -0.6, T-score -1.1.. LEFT FEMUR, TOTAL: BMD 1.059 g/cm2, Z-score 0.6, T-score 0.4 . IDENTIFIED RISK FACTORS: None listed. HISTORY OF FRACTURE: None listed. MEDICATIONS: None listed. MM/XR DEXA axial skeleton IMPRESSION: 1. DIAGNOSIS: Osteopenia based on the lowest T-score value of -1.1 in the left femoral neck applying World Health Organization criteria. 2. 10-YEAR FRACTURE RISK PREDICTION, FRAX: 9.3% for spine and 0.7% for hip 3. Treatment Recommendations: NOF guidelines recommend consideration for treatment in postmenopausal women and men age 50 and older presenting with the following: -A hip or vertebral (clinical or morphometric) fracture. -T-score less than or equal to -2.5 at the femoral neck or spine after appropriate evaluation to exclude secondary causes. -Low bone mass at the hip or spine and a 10-year fracture probability by FRAX of greater than or equal to 3% for hip fracture or greater than or equal to 20% for major osteoporotic fracture based on the [place] adapted WHO algorithm. 4. Recommend follow-up in 2 years. FUTURE SCAN RECOMMENDATION: People with diagnosed cases of osteoporosis or at high risk for fracture should have regular bone mineral density tests. For patients eligible for Medicare, routine testing is allowed once every 2 years. The testing frequency can be increased to one year for patients who have rapidly progressing disease, those who are receiving or discontinuing medical therapy to restore bone mass, or have additional risk factors. Electronically signed by: Chalino Dobbins MD 04/29/2025 09:36 AM EDT
--- NOTE | ~2025-04-29 | MM_ITS ---
EXAMINATION: MM SCREENING DIGITAL BREAST TOMOSYNTHESIS, BILATERAL CLINICAL INFORMATION: Screening. Asymptomatic. COMPARISON: Mammography: Comparison is made with available priors TECHNIQUE: Digital breast mammography with tomosynthesis is performed in both the craniocaudal and mediolateral oblique views along with computer-aided detection (CAD). FINDINGS: There are scattered areas of fibroglandular density (ACR BI-RADS breast composition Category b). There are no significant masses, abnormal calcifications, or other abnormalities. MM/MM tomosynthesis screening BI IMPRESSION: No mammographic evidence of malignancy. ASSESSMENT: BI-RADS BI-RADS 1 - Negative RECOMMENDATION: Routine annual mammography screening. 1 year F/U This examination should not preclude the clinical evaluation of a suspicious palpable abnormality. This patient's information was entered into a reminder system with a target due date for their next mammogram. Electronically signed by: Carmenza Cobos DO 05/03/2025 09:30 AM EDT
--- OUTSIDE RECORDS SUMMARY | 2025-04-29 08:43 | XMS_ITS | Patient Health Record ---
Author Organization [facility] Address [address] [place] [address] Care Team Providers Care Slide Maker Name Role Phone Germania GASTON, Radha Morales Primary Care Provider Un available Kadeempriya Whitney Unavailable [phone] Allergies Allergen (clinical drug ingredient) Drug/Non Drug Allergy documented on EMR Reaction Allergy Type Onset Date Status codeine Codeine vomit Drug Allergy Active tylenol with codeine vomit Drug Allergy Active Reason For Referral No Information Medications Medication SIG (Take, Route, Frequency, Duration) Notes Start Date End Date Status Ciclopirox Olamine 0.77 % 1 application to affected area Externally Twice a day; Duration: 30 days Active Mirena (52 MG) 20 MCG/24HR Intrauterine Active Work Note-Appointment . . . Pt had a [facility] appointment today; Duration: . 04/25/2018 Active Irbesartan 150 MG 1 tablet Orally Once a day Active Social History Tobacco Use: Social History Observation Description Date Details (start date - stop date) Never Smoker NA - NA Tobacco Use/Smoking Question Answer Notes Are you a: nonsmoker Additional Findings: Tobacco Non-User Current no n-smoker Alcohol Screen Question Answer Notes Did you have a drink containing alcohol in the p ast year? No Points 0 Interpretation Negative Tobacco use other than smoking: Question Answer Notes Are you an other tobacco user? 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 [address] [place] [address] [phone] [id number] Greer Cullen Self - patient is the insured 8 Medical (General) History Medical History History ICD Code Hypertension Hyperlipidemia Herniated disc Chicken pox Surgical History Surgery Date(Month/Year) Colonoscopy 2012
[2025-04-29 13:41] LABS: Hemoglobin A1C 201.3681 umol/L; Total Hemoglobin (HGBA1C) 3329.2364 umol/L
[2025-04-29 13:46] LABS: Alanine Aminotransferase 15 U/L (0-31); Anion Gap 13 (12-20); Aspartate Amino Transferase 31 U/L (5-31); Blood Urea Nitrogen 13 mg/dL (9-16); Calcium 9.5 mg/dL (8.4-10.2); Carbon Dioxide 27 mmol/L (22-29); Chloride 107 mmol/L (96-108); Cholesterol 163 mg/dL (<200); Estimated Glomerular Filt Rate > 60; HDL Cholesterol 29 mg/dL (>40); Potassium 5.1 mmol/L (3.3-5.1); Sodium 142 mmol/L (135-145); Triglycerides 200 mg/dL (<150)
[2025-04-29 13:48] LABS: Microalbum/Creatinine Ratio Ur 5.1 ug/mg cr (<30)
== END 2025-04-29 08:22 | disposition home or self-care (01) ==
LOC: HO.MAMMO 08:21
PROVIDERS: PCP Internal Medicine; Visit Provider Internal Medicine
DX: I10 Essential (primary) hypertension (principal); E11.9 Type 2 diabetes mellitus without complications; E66.9 Obesity, unspecified; E78.5 Hyperlipidemia, unspecified; Z12.31 Encounter for screening mammogram for malignant neoplasm of breast; Z78.0 Asymptomatic menopausal state
CPT/HCPCS: 36415; 77063; 77067; 77080; 80048; 80061; 82043; 82570; 83036; 84450; 84460; 99499

== ENCOUNTER → 2025-04-29 09:15 | Outpatient (BNV) | payer BC, SELFPAY | PROVIDERS: PCP Internal Medicine; Visit Provider Radiology Diagnostic Radiology | DX: E28.39 Other primary ovarian failure (principal) | CPT/HCPCS: 77080 ==

== ENCOUNTER 2025-08-16 10:12 | Outpatient (REF) | payer BC, SELFPAY ==
[2025-08-16 14:31] LABS: Alanine Aminotransferase 16 U/L (0-31); Anion Gap 12 (12-20); Aspartate Amino Transferase 32 U/L (5-31); Blood Urea Nitrogen 19 mg/dL (9-16); Calcium 9.5 mg/dL (8.4-10.2); Carbon Dioxide 26 mmol/L (22-29); Chloride 110 mmol/L (96-108); Cholesterol 137 mg/dL (<200); Estimated Glomerular Filt Rate > 60; HDL Cholesterol 31 mg/dL (>40); Potassium 4.8 mmol/L (3.3-5.1); Sodium 143 mmol/L (135-145); Triglycerides 183 mg/dL (<150)
== END 2025-08-16 10:13 | disposition home or self-care (01) ==
LOC: HO.HMGCLDS 10:12
PROVIDERS: PCP Internal Medicine; Visit Provider Internal Medicine
DX: I10 Essential (primary) hypertension (principal); E78.5 Hyperlipidemia, unspecified; E11.9 Type 2 diabetes mellitus without complications; E66.9 Obesity, unspecified
CPT/HCPCS: 36415; 80048; 80061; 83036; 84450; 84460

== ENCOUNTER 2025-08-18 07:46 | Outpatient (AMB) | payer BC, SELFPAY ==
--- OUTSIDE RECORDS SUMMARY | 2025-08-18 07:48 | XMS_ITS | Patient Health Record ---
Author Organization [facility] Address [address] [place] [address] Care Team Providers Care Sound Truck Operator Name Role Phone Germania GASTON, Radha Morales Primary Care Provider Un available Kadeempriya Whitney Unavailable [phone] Allergies Allergen (clinical drug ingredient) Drug/Non Drug [...] Note-Appointment . . . Pt had a [facility] appointment today; Duration: . 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
--- NOTE | 2025-08-18 08:01 | MHC.PC.OV ---
Vital Signs 08/18/25 08:06 Height 5 ft 8 in Weight 232 lb BMI 35.3 BP 136/64 Blood Pressure Location Rt brachial Position Sitting Respiration 16 Pulse 84 Pulse Source Pulse Oximeter Temp 98.3 F Temp Source Oral Pulse Oximetry (%) 98 Oxygen Delivery Method Room Air Intake Visit Reasons: PE Intake Note: Pt is here today for her PE: Last mammogram 04/29/25, papsmear 09/22/19, colonoscopy 06/29/23 Box Inspector Required: No Allergies codeine (From TYLENOL-CODEINE #3) Allergy (Unknown, Verified 08/18/25 08:19) NAUSEA & VOMITING Medication List - Last Reconciled 08/18/25 by Radha Solo MD blood sugar diagnostic (FreeStyle Lite Strips) check fasting blood sugar twice a day before meals blood-glucose meter (FreeStyle Lite Meter kit) Check fasting blood sugar twice a day before meals losartan 50 mg PO DAILY metformin 500 mg PO BIDWMEAL 90 days rosuvastatin 5 mg PO 2XW 90 days Tobacco use date assessed: 08/18/25 Dental Screening Dental Screen Date: 08/18/25 Did you have a dental visit in the last 12 months?: Yes Did you have a dental problem in the last 6 months where you did not have access to dental care?: No Was dental information given to patient?: Patient has dentist HPI PE HPI Details 64 year-old female diabetes mellitus, hypertension, and dyslipidemia, here today for her physical examination . She has been feeling well, compliant with taking her medications but admits to not fully following recommended diet and has not been able to exercise much due to arthritis in her knees. Recently received a cortisone injection her right knee. Latest labs showed normal lipids electrolytes renal function, but hemoglobin A1c is up at 7.6%. She currently reside in [place] , but comes up to [place] during holidays she states that she went to a cause going forward for her eye exam which came back negative for retinopathy. She already received her flu vaccine and reminded to get her shingles vaccine, Prevnar 20 given today. She is up-to-date with her screening mammogram, which came back with negative findings last April 2025. Bone density done same time showed presence of beginning osteopenia in left femoral neck. No history of fractures She had a Cologuard test done in the fall which came back negative, copy of results requested [facility] Medical History Diabetes mellitus without complication, without long-term current use of insulin Obesity (BMI 30.0-34.9) Vitamin D deficiency Dyslipidemia Essential hypertension Surgical History H/O shoulder surgery Family History Brother Substance use disorder Social History Housing: Condominium Comment: Reports Alcohol Flush Reaction therefore avoids it altogether Patient Tobacco Use Status: Former Tobacco user Tobacco use type: Cigarette e-Cigarette/Vaping Use: Never Used service: No Current occupational status: retired Cognitive needs: No Hearing needs: No Vision needs: Yes Questionnaire PHQ-9 Over the last 2 weeks, how often have you been bothered by any of the following problems? 1. Little interest or pleasure in doing things: not at all 2. Feeling down, depressed, or hopeless: not at all 3. Trouble falling or staying asleep, or sleeping too much: not at all 4. Feeling tired or having little energy: not at all 5. Poor appetite or overeating: not at all 6. Feeling bad about yourself - or that you are a failure or have let yourself or your family down: not at all 7. Trouble concentrating on things, such as reading the newspaper or watching television: not at all 8. Moving or speaking so slowly that other people could have noticed. Or the opposite - being so fidgety or restless that you have been moving around a lot more than usual: not at all 9. Thoughts that you would be better off or of hurting yourself in some way: not at all Total score: 0 Depression Screening Interpretation: Negative Depression Screening Done: Yes 15977 - PHQ-9 Billing: Yes Source: Developed by Drs. Rafa Martines, Amanda Perez, Flex Turner and colleagues, with an educational santa from [employer]. Thrive Questionnaire Date Thrive assessed: 08/18/25 I am a: Patient What is your living situation today?: I have a steady place to live Within the past 12 months, did the food you bought not last and you didn't have the money to get more?: Never true Within the past 12 months, did you worry whether your food would run out before you got money to buy more?: Never true Do you have trouble paying for medicines?: No Do you have trouble getting transportation to medical appointments?: No Do you have trouble paying your heating and electricity bill?: No Do you have trouble taking care of your child, family member or friend?: No Do you have trouble with day-to-day activities such as bathing, preparing meals, shopping, managing finances, etc.?: No Are you currently unemployed and looking for a job?: No Are you interested in more education?: No Please select the resources that you would like help with: None Currently or been in a relationship where the following occur: No concerns reported THRIVE Score: 0 AUDIT C Alcohol Use Questionnaire (AUDIT-C) 1. How often do you have a drink containing alcohol?: Never 3. How often do you have six or more drinks on one occasion?: Never Total Score: 0 Score Reviewed/Action Taken: Yes LATONYA-7 AMB Questionnaire LATONYA-7 Date LATONYA - 7 assessed: 08/18/25 Feeling nervous, anxious, or on edge: 0 = Not at all Not being able to stop or control worryin = Not at all Worrying too much about different things: 0 = Not at all Trouble relaxin = Not at all Being so restless that it is hard to sit still: 0 = Not at all Becoming easily annoyed or irritable: 0 = Not at all Feeling afraid as if something awful might happen: 0 = Not at all Total LATONYA-7 score (0-4 normal; 5-9 mild; 10-14 moderate; 15-21 severe): 0 Source: Developed by Drs. Rafa Martines, Amanda Perez, Flex Turner and colleagues, with an educational santa from [employer]. LATONYA-7 Assessment Billing LATONYA-7 Assessment Tool: LATONYA-7 Assessment 73437 Review of Systems Const Denies body aches, Denies fatigue, Denies headache(s), Denies lethargy, Denies malaise and Denies weakness Eyes Details: Goes to [facility] in [place] where she had her yearly diabetes retinopathy screening , negative per patient Denies change in vision ENT Denies dizziness, Denies headache(s), Denies nasal congestion, Denies nasal discharge and Denies sore throat Card Denies chest pain, Denies lightheadedness and Denies dyspnea Resp Denies chest congestion, Denies cough, Denies dyspnea and Denies wheezing GI Denies abdominal pain, Denies change in bowel habits and Denies heartburn Denies urinary frequency, Denies difficulty voiding, Reports hot flashes, Denies dysuria, Denies urinary hesitancy, Denies urinary urgency and Denies vaginal discharge Musc Details: As per HPI Denies numbness and Denies tingling Skin/Breast Denies breast swelling, Denies breast skin changes, Denies breast pain and Denies rash Neuro Denies dizziness, Denies headache(s), Denies numbness, Denies Sensory deficit (Neuro), Denies tingling and Denies weakness Psych Reports no additional complaints Endo Denies fatigue, Denies polyphagia, Denies polydipsia and Denies polyuria Sebas/Lymph Denies easy bruising Aller/Immun Denies seasonal rhinorrhea and Denies wheezing Physical exam (Primary Care) Vital Signs: Last Vital Signs Temp 98.3 F 08/18/25 08:06 Pulse 84 08/18/25 08:06 Resp 16 08/18/25 08:06 BP 136/64 08/18/25 08:06 Pulse Ox 98 08/18/25 08:06 Oxygen Delivery Method Room Air 08/18/25 08:06 BMI result Body Mass Index 35.3 BMI Assessment/Plan discussion: High BMI High, discussed plan: lifestyle, weight reduction, dietary and physical activity Tobacco/Smoking Status: Tobacco use Status Tobacco use date assessed 08/18/25 08/18/25 08:06 Patient Tobacco Use Status Former Tobacco user 08/18/25 08:02 Tobacco use type Cigarette 08/18/25 08:02 e-Cigarette/Vaping Use Never Used 08/18/25 08:02 PHQ-9: PHQ-9 Score PHQ-9: Total score 0 08/18/25 08:06 Depression Screening Interpretation: Negative Thrive Assessment: Date of Thrive Assessment Date Thrive assessed 08/18/25 08/18/25 08:06 Currently or been in a relationship where the following occur: No concerns reported Const General: no acute distress and alert Nutritional Appearance: obese Orientation/consciousness: patient oriented x3 HENMT Mouth: Normal oral and palatal mucosa present, oropharynx normal and moist mucous membranes Eyes General: appearance normal, both eyes and all related structures Neck Neck: Yes full ROM, Yes no lymphadenopathy and Yes supple Chest Chest palpation & inspection: normal inspection of the chest Breast/axilla palpation: normal palpation of the breasts and normal palpation of the axillae Resp Effort & Inspection: normal respiratory effort and able to speak in complete sentences Auscultation: clear to auscultation bilaterally Cardio Rate: regular rate Rhythm: regular rhythm Heart sounds: S1 normal heart sound present and S2 normal heart sound present GI Palpation (GI): Soft to palpation, nontender and no masses Auscultation: normal bowel sounds General: Yes no CVA tenderness and Yes deferred (Goes to [facility] for her routine Pap and pelvic exam, currently UTD) Back/Spine/Pelvis Back: no CVA tenderness and No back tenderness Skin General skin exam: no rashes or lesions noted Neuro General: patient oriented x3, gait normal, tone normal, moves all extremities, Normal light touch and pain sensation and no focal motor deficits Cranial nerves: Yes CN's II-XII intact bilaterally Cognition (Neuro): normal cognition Gait exam (Neuro): Normal gait present Motor exam (neuro): 5/5 motor strength present throughout Sensory Exam: No Sensory deficit (Neuro) Extrem General: Yes full ROM, Yes no joint enlargement, Yes no clubbing, cyanosis or edema and Yes no calf tenderness Psych Appearance: grossly normal and well kempt Mental Status: mental status grossly normal Speech and movement: Normal speech and movement present Affect: normal affect Immunizations pneumoc 20-zach conj-dip cr(PF) 0.5 mL IM syringe Performing Provider: Radha Solo MD Performing Location: [facility] Administered by: Karen Camacho CMA on 08/18/25 08:55 Dose Route Admin Location Dispensed Lot Number Expiration Date 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 Eligible 08/18/25 Private Results Reviewed Results Reviewed: Laboratory Tests 04/29/25 08/16/25 11:30 10:38 Estimat Average Glucose 177 Hemoglobin A1c % 7.8 H Urine Creatinine 97.75 Urine Microalbumin 5.0 Microalb/Creat Ratio 5.1 Name: Greer Cullen Age/Sex: 64/F : 1960 Unit#: [id number] Attend Dr: Radha Solo MD Re08/16/25 Status: DEP REF Location: [facility] Disch: SPEC : [id number] ROYCE: 08/16/25-1037 STATUS: COMP REQ : [id number] RECD: 08/16/25-[address]: Radha Solo MD COMP: 08/16/25-1431 ENTERED: 08/16/25-[address]: ORDERED: Met Prof Fast, AST, ALT, Lipid Panel Test Result Flag Reference Sodium 143 135-145 mmol/L Potassium 4.8 3.3-5.1 mmol/L CL 110 H 96-108 mmol/L CO2 26 22-29 mmol/L Gap 12 12-20 BUN 19 H 9-16 mg/dL Creat 0.88 0.5-1.4 mg/dL eGFR > 60 Chronic Kidney Disease: Estimated GFR < 60 mL/min/1.73m2 Severe Kidney Disease: Estimated GFR < 15 mL/min/1.73m2 FBS 148 H 60-99 mg/dL A fasting glucose of 126 mg/dl or greater on more than one occasion is considered diagnostic of diabetes. CA 9.5 8.4-10.2 mg/dL AST (GOT) 32 H 5-31 U/L ALT (GPT) 16 0-31 U/L Triglyceride 183 H <150 mg/dL Desirable Triglyceride: less than 150 mg/dL Borderline High Triglyceride 150-199 mg/dL High Triglyceride: 200-499 mg/dL Very High Triglyceride: greater than or equal to 5OO mg/dL Cholesterol 137 <200 mg/dL Desirable Cholesterol: less than 200 mg/dL Borderline High Cholesterol: 200-239 mg/dL High Cholesterol: greater than 239 mg/dL LDL Calculated 70 <100 mg/dL Desirable LDL: less than 100 mg/dL Near Optimal/Above Optimal LDL: 110-129 mg/dL Borderline High LDL: 130-159 mg/dL High LDL: 160-189 mg/dL Very High LDL: greater than or equal to 190 mg/dL HDL 31 L >40 mg/dL Desirable HDL: greater than 40 mg/dL Note: This HDL assay may give artificially low results in patients with liver disease. Coding Level of Care Code Est Pt Prev Care 40-64y(12848) Diagnoses Diabetes mellitus without complication, without long-term current use of insulin E11.9 Essential hypertension I10 Dyslipidemia E78.5 Obesity (BMI 30.0-34.9) E66.9 Additional Codes PHQ-9 - 94582 - PHQ-9 Billing: Yes ([id number]) LATONYA-7 Assessment Billing - LATONYA-7 Assessment Tool: LATONYA-7 Assessment 02270 ([id number]) Assessment & Plan Assessment & Plan (1) Diabetes mellitus without complication, without long-term current use of insulin: Code(s): E11.9 - Type 2 diabetes mellitus without complications Category: Medical Plan: Latest hemoglobin A1c 7.6%, will start on Mounjaro 2.5 mg injected once a week, continue with metformin 500 mg twice a day, reinforced importance of adhering to recommended diet and getting regular exercise. Up-to-date with her diabetes eye screening, goes to [facility] in [place], copy of report requested. Up-to-date with her flu vaccine, Prevnar 20 given today. Will repeat another hemoglobin A1c in 3 months together with urine microalbumin and lipid panel and basic metabolic panel as well (2) Essential hypertension: Code(s): I10 - Essential (primary) hypertension Category: Medical Plan: Continue with losartan 50 mg daily. Reinforced importance of following a low sodium diet, getting regular exercise, and lowering stress levels. (3) Dyslipidemia: Code(s): E78.5 - Hyperlipidemia, unspecified Category: Medical Plan: Reviewed recent fasting lipid profile with patient with levels . Continue rosuvastatin 5 mg per tablet, 1 tablet twice a day week , in addition to adherence to low-cholesterol diet and regular exercise, at least 30 minutes 3 to 4 times a week. Advised patient to make healthy food choices, eat more fruits, vegetables, whole grains, wild caught fish and low-fat dairy. Limit amount of meat and fried or fatty food products, as well as processed foods and fast foods. Follow-up scheduled with repeat fasting lipid panel in 3 months. (4) Obesity (BMI 30.0-34.9): Code(s): E66.9 - Obesity, unspecified Category: Medical Plan: Started on Mounjaro 2.5 mg injected once a week, directions on proper use given to patient and possible side effects that she might encounter. Advised to establish with another doctor in [place] where she now lives for follow-up visit Orders: Orders Aspartate Amino Transferase 3 Months E11.9 - Type 2 diabetes mellitus without complications, E66.9 - Obesity, unspecified, E78.5 - Hyperlipidemia, unspecified, I10 - Essential (primary) hypertension Alanine Aminotransferase 3 Months E11.9 - Type 2 diabetes mellitus without complications, E66.9 - Obesity, unspecified, E78.5 - Hyperlipidemia, unspecified, I10 - Essential (primary) hypertension Basic Metabolic Panel Fasting 3 Months E11.9 - Type 2 diabetes mellitus without complications, E66.9 - Obesity, unspecified, E78.5 - Hyperlipidemia, unspecified, I10 - Essential (primary) hypertension Pneumococcal 20 Immunization Today E11.9 - Type 2 diabetes mellitus without complications Lipid Panel 3 Months E11.9 - Type 2 diabetes mellitus without complications, E66.9 - Obesity, unspecified, E78.5 - Hyperlipidemia, unspecified, I10 - Essential (primary) hypertension Hemoglobin A1c 3 Months E11.9 - Type 2 diabetes mellitus without complications, E66.9 - Obesity, unspecified, E78.5 - Hyperlipidemia, unspecified, I10 - Essential (primary) hypertension Microalbumin, Random (w Creat) 3 Months E11.9 - Type 2 diabetes mellitus without complications, E66.9 - Obesity, unspecified, E78.5 - Hyperlipidemia, unspecified, I10 - Essential (primary) hypertension Vitamin D 25-OH Total 3 Months E11.9 - Type 2 diabetes mellitus without complications, E66.9 - Obesity, unspecified, E78.5 - Hyperlipidemia, unspecified, I10 - Essential (primary) hypertension Medications: New Mounjaro (tirzepatide) already on Metformin , butwith HBA1c still elevated at 7.6% 2.5 mg (0.5 mL) subcut QWEEK 2 mL 3RF uncontrolled diabetes mellitus NS Refilled rosuvastatin 5 mg PO 2XW 26 tabs 5RF 90 days E11.65 - Type 2 diabetes mellitus with hyperglycemia, E78.5 - Hyperlipidemia, unspecified, I10 - Essential (primary) hypertension losartan 50 mg PO DAILY 90 tabs 4RF I10 - Essential (primary) hypertension metformin 500 mg PO BIDWMEAL 180 tabs 4RF 90 days E11.65 - Type 2 diabetes mellitus with hyperglycemia
[2025-08-18 08:06] VITALS: BP 136/64; PULSE 84; RESP 16; TEMP 36.8; O2SAT 98; BMI 35.3
== END 2025-08-18 08:56 | disposition home or self-care (01) ==
LOC: HO.HMCC 07:47
PROVIDERS: PCP Internal Medicine; Visit Provider Internal Medicine
DX: Z00.00 Encounter for general adult medical examination without abnormal findings (principal); E11.9 Type 2 diabetes mellitus without complications; I10 Essential (primary) hypertension; E78.5 Hyperlipidemia, unspecified; E66.9 Obesity, unspecified

== ENCOUNTER → 2025-08-18 07:46 | Outpatient (BNVA) | payer BC, SELFPAY | PROVIDERS: PCP Internal Medicine; Visit Provider Internal Medicine | DX: Z23 Encounter for immunization (principal); E11.9 Type 2 diabetes mellitus without complications; I10 Essential (primary) hypertension; E78.5 Hyperlipidemia, unspecified; E66.9 Obesity, unspecified; Z68.35 Body mass index [BMI] 35.0-35.9, adult | CPT/HCPCS: 90471; 90677; 96127 ==